=== PATIENT | male | born 1940 ===

== ENCOUNTER 2019-02-19 18:13 | Observation (INO) | payer OTHER, BC ==
[2019-02-19 18:23] VITALS: BMI 25.8
--- NOTE | 2019-02-19 18:24 | PDOC ---
Rapid Medical Evaluation Medical Evaluation: I have performed a brief in-person evaluation of this patient. The patient presents with a chief complaint of: Hx of asthma, HTN, HLD; Sent by PCP for possible PNA; c/o worsening SOB over the past month; +productive cough; denies fever, cp Pertinent physical exam findings: Appears slightly tachypneic, +expiratory wheeze, no pedal edema I have ordered the following: Labs, EKG, CXR The patient will proceed to the ED for further evaluation. 02/19/19 18:19
[2019-02-19] MEDS ORDERED: ALBUTEROL SO4 2.5/IPRATROPIUM 0.5 INH SOL 3 ML VIAL.NEB. NEB ONE (18:47)
[2019-02-19 18:57] LABS: BASO % 0.7 % (0-2.0); EOS % 0.6 % (0-4.5); HEMATOCRIT 48.6 % (35.4-49); HEMOGLOBIN 15.8 GM/dL (11.7-16.9); LYMPH % 17.5 % (8-40); MCH 28.8 pg (25.7-33.7); MCHC 32.5 g/dl (32.0-35.9); MEAN CELL VOLUME 88.7 fl (80-96); MEAN PLT VOLUME 9.1 fl (7.5-11.1); MONO % 17.8 % (3.8-10.2); NEUT % 63.4 % (42.8-82.8); PLATELET COUNT 140 K/MM3 (134-434); RBC 5.48 M/mm3 (4.00-5.60); RDW 14.2 % (11.9-15.9)
[2019-02-19 18:59] LABS: VENOUS PH 7.36 (7.31-7.41)
[2019-02-19] MEDS: ALBUTEROL SO4 2.5/IPRATROPIUM 0.5 INH SOL 3 ML VIAL.NEB. NEB SCH ×3 (19:02→20:51)
[2019-02-19 19:11] LABS: VENOUS PO2 17.6 mmHg (30-40)
[2019-02-19 19:34] LABS: ALBUMIN 3.7 g/dl (3.4-5.0); ALK PHOS 83 U/L (45-117); ANION GAP 4 MMOL/L (8-16); BILIRUBIN,TOTAL 0.8 mg/dL (0.2-1); BLOOD UREA NITROGEN 25 mg/dL (7-18); CALCIUM 8.7 mg/dL (8.5-10.1); CHLORIDE 103 mmol/L (98-107); CO2 31 mmol/L (21-32); CREATININE 1.7 mg/dL (0.55-1.3); GLUCOSE,RANDOM 79 mg/dL (74-106); N-TERMINAL BNP 146.9 pg/ml (5-450); POTASSIUM 4.8 mmol/L (3.5-5.1); SGOT/AST 22 U/L (15-37); SGPT/ALT 26 U/L (13-61); SODIUM 138 mmol/L (136-145); TOT PROT 6.6 g/dl (6.4-8.2)
[2019-02-19] MEDS ORDERED: FOLIC ACID INJECTION - 1 MG, THIAMINE HCL 100 MG, MULTIVIT INJECTION ADULT 10 ML in SOD... IVPB ONE (19:38)
--- NOTE | 2019-02-19 19:49 | PDOC ---
History of Present Illness - General Chief Complaint: Shortness of Breath Stated Complaint: shortness of breath Time Seen by Provider: 02/19/19 18:19 - History of Present Illness Initial Comments: Kedar Baldwin is a 78yo man with a PMH of CAD s/p 2x stents, HTN, HLD, childhood asthma (no longer on treatment) who was sent to the ED by Dr Deondre Goel for evaluation for one month of cough, now worsening over the past week. He reports that he had a cold with nasal congestion about a month ago. The cold "settled into his lungs" which he states is the typical pattern when he has a respiratory infection. He saw Dr Goel about 2 weeks ago due to continued cough and was given an injection and prescription to take at home, which he believes were steroids and antibiotics. However over the past 2 weeks, he has had a worsening cough. He states that he has coughing episodes in which he coughs to the point that he has difficulty breathing. The cough is worse at night. This past week, he has also felt increasingly fatigued and weak. He was directed to the ED by Dr Goel but accidentally went to [facility] instead of [facility]. He had a chest xray completed, and he does not believe it showed any pneumonia. Today he felt so weak that he had difficulty ambulating. He also reports anorexia during his illness, and he has had about a 10lb weight loss over the past month. He denies any fever, chills, continued nasal/sinus congestion, nausea/vomiting, change in bowel habits, or known sick contacts. He does report a recent cruise to the [facility] within the past 2 weeks. Past History - Past Medical History Allergies/Adverse Reactions: Allergies Allergy/AdvReac Type Severity Reaction Status Date / Time No Known Allergies Allergy Verified 02/19/19 18:23 Home Medications: Ambulatory Orders Aspirin 81 mg PO DAILY 02/19/19 Atorvastatin Calcium 20 mg PO DAILY 02/19/19 Hydrocodone Bit/Homatrop Me-Br [Hydrocodone-Homatropine Syrup] 5 ml PO DAILY 07/31 Losartan Potassium 50 mg PO DAILY 02/19/19 Metoprolol Tartrate 25 mg PO DAILY 02/19/19 Cardiac Disorders: Yes (2stents) COPD: No HTN: Yes Hypercholesterolemia: Yes - Surgical History Cardiac Surgery: Yes (stents) - Suicide/Smoking/Psychosocial Hx Smoking History: Never smoked Information on smoking cessation initiated: No Hx Alcohol Use: No Drug/Substance Use Hx: No Review of Systems - Review of Systems Comments:: General: No fevers, no chills, +anorexia, +fatigue/weakness HEENT: No changes in vision, no changes in hearing, +recent URI, no sore throat CV: No chest pain, no palpitations, no LE edema Pulm: +cough, no wheezing GI: No nausea or vomiting, no change in bowel habits, no melena : No frequency, no urgency, no dysuria Musc: No back pain, no joint swelling, no recent injury Skin: No rash, no lesions, no erythema Endo: No excessive thirst, no heat/cold intolerance Heme: No unusual bruising or bleeding, no swollen glands Neuro: No syncope, no numbness/tingling, no focal weakness Vasc: No claudication Psych: No recent change in mood, no SI or HI *Physical Exam - Vital Signs Last Vital Signs Temp Pulse Resp BP Pulse Ox 97.4 F L 95 H 19 127/61 97 02/19/19 18:19 02/19/19 18:19 02/19/19 18:19 02/19/19 18:19 02/19/19 18:19 - Physical Exam Comments: General: Comfortable, no acute distress HEENT: PERRL, EOMI, MMM, voice normal Cards: RRR, no murmur appreciated Pulm: Loud upper respiratory sounds, productive cough, good breath sounds b/l w/ o crackles or wheezing Abd: Soft, nontender, nondistended Ext: Atraumatic. No LE edema. ROM intact. Strength 5/5 and equal bilaterally Vasc: Extremities WWP. Skin: Normal color, no rashes or lesions Neuro: A&Ox3, CN grossly intact, normal speech, motor/sensory grossly intact and symmetric Psych: Mood appropriate to situation ED Treatment Course - LABORATORY CBC & Chemistry Diagram: 02/19/19 18:44 02/19/19 18:44 - ADDITIONAL ORDERS Additional order review: Laboratory Results 02/19/19 02/19/19 18:48 18:44 VBG pH 7.36 POC VBG pCO2 54.0 H POC VBG pO2 17.6 L VBG HCO3 29.9 H VBG O2 Sat (Neal) 21.5 L VBG Base Excess 3.4 H Sodium 138 Potassium 4.8 Chloride 103 Carbon Dioxide 31 Anion Gap 4 L BUN 25 H Creatinine 1.7 H Est GFR (CKD-EPI)AfAm 43.79 Est GFR (CKD-EPI)NonAf 37.79 Random Glucose 79 Calcium 8.7 Total Bilirubin 0.8 AST 22 ALT 26 Alkaline Phosphatase 83 Creatine Kinase 103 Troponin I < 0.02 B-Natriuretic Peptide 146.9 Total Protein 6.6 Albumin 3.7 02/19/19 18:44 RBC 5.48 MCV 88.7 MCHC 32.5 RDW 14.2 MPV 9.1 Neutrophils % 63.4 Lymphocytes % 17.5 Monocytes % 17.8 H Eosinophils % 0.6 Basophils % 0.7 - Medications Given in the ED: ED Medications Discontinued Medications Generic Name Dose Route Start Last Admin Trade Name Freq PRN Reason Stop Dose Admin Albuterol/Ipratropium 1 amp 02/19/19 18:30 02/19/19 19:40 Duoneb - NEB 02/19/19 19:01 1 amp Q15M [facility] Administration Medical Decision Making - Medical Decision Making 02/19/19 19:49 Kedar Baldwin is a 78yo man with a PMH of CAD s/p 2x stents, HTN, HLD, childhood asthma (no longer on treatment) who was sent to the ED by Dr Deondre Goel for evaluation for one month of cough that has worsened over the past week. He reports associated anorexia, weight loss, and increasing fatigue/ weakness in addition to continued productive cough. - Given worsening symptoms, suspect pneumonia following viral URI. Consider legionella given recent cruise - CXR completed at [facility] that reportedly did not show pneumonia. Will obtain CT chest to better evaluate for pneumonia. As he also reports cough worsening at night, will CT sinuses to evaluate for sinusitis. - CBC, CMP, trop, BNP, EKG, CXR ordered in [facility]. Chemistry completed, shows elevated Cr to 1.7. Pt noted to be tachycardic in low 100's on arrival, most likely represents dehydration. 1L IVF ordered by Dr Fairchild for hydration. CXR canceled in favor of CT chest. 02/19/19 21:30 - Labs reviewed. VBG with low O2 at 17. ABG ordered, declined by pt. - CT sinuses w/ acute on chronic sinusitis. CT chest w/ mild emphysematous changes. - Discussed w/ Mr Baldwin. Recommending admission given duration of illness, report of weakness that prevents ambulating, hypoxia, NATIVIDAD. He agrees with this plan. - Call placed to Dr Deondre Goel regarding admission 02/19/19 21:37 - Spoke to Dr Goel. Will admit to obs. Requesting Dr Bhagat for pulmonology consult. Azithromycin, singulair for symptoms. Discussed with Dr Fairchild. Jennyfer Stanton PGY1 *DC/Admit/Observation/Transfer Diagnosis at time of Disposition: NATIVIDAD (acute kidney injury), Sinusitis, Hypoxia, COPD (chronic obstructive pulmonary disease) - Discharge Dispostion Decision to Admit order: Yes - Referrals Referrals: Deondre Goel MD [Primary Care Provider] - - Patient Instructions - Post Discharge Activity
[2019-02-19] MEDS ORDERED: AZITHROMYCIN IVPB 500 MG in DEXTROSE 5%-WATER - 250 ML IVPB ONE (21:52)
[2019-02-19] MEDS ORDERED: AZITHROMYCIN IVPB 500 MG/250 ML BAG IVPB ONE (21:58)
[2019-02-19] MEDS ORDERED: MONTELUKAST NA 10 MG TABLET ONE (22:07)
[2019-02-19] MEDS: MONTELUKAST NA 10 MG TABLET PO SCH (22:13)
--- NOTE | 2019-02-20 00:45 | PDOC ---
Documentation entered by Serafin Quezada SCRIBE, acting as scribe for Alayna Fairchild MD. Alayna Fairchild MD: This documentation has been prepared by the pauloibe, Serafin Quezada SCRIBE, under my direction and personally reviewed by me in its entirety. I confirm that the documentation accurately reflects all work, treatment, procedures, and medical decision making performed by me. Attending Attestation - Resident Resident Name: Jennyfer Stanton - ED Attending Attestation I have performed the following: I have examined & evaluated the patient, The case was reviewed & discussed with the resident, I agree w/resident's findings & plan - HPI HPI: 02/19/19 20:37 The patient is a 78 year old male with a significant past medical history of hypertension, hyperlipidemia, CAD , and childhood asthma(last attack at 24 years old) who presents to the emergency department with shortness of breath for 1 month. He states that his shortness of breath has worsened with the past week . The patient reports an associated worsening cough and increased weakness with his shortness of breath. He states that he has been experiencing coughing spells that make it difficult for him to breathe. It is noted that the patient saw his Dr for this similar complaint 2 weeks ago by which he was given a steroid shot and medication for his cough. The patient states that his PCP subsequently sent him to the ED to get x-ray imaging of his chest. The patient has reported some associated chills, runny nose, decreased appetite, and weight loss with his symptoms. He denies any fever, nausea, vomiting, diarrhea, constipation or urinary symptoms. He denies any known sick contact, chest pain, orthopnea, or leg swelling. The patient denies any other complaints. It is noted that the patient went on a cruise for 1 week (traveled to [place], [facility], and [facility]) and returned 6 days ago. - Physicial Exam PE: 02/19/19 20:37 GENERAL: Awake, alert, and fully oriented, in no acute distress HEAD: No signs of trauma EYES: PERRLA, EOMI, sclera anicteric, conjunctiva clear ENT: (+)junky cough with deep breath. Auricles normal inspection, hearing grossly normal, nares patent, oropharynx clear without exudates. Moist mucosa NECK: Normal ROM, supple, no lymphadenopathy, JVD, or masses LUNGS: (+)coarse breath sounds bilaterally throughout both lung godoy, wheezing bilaterally, No wheezes, and no crackles HEART: Regular rate and rhythm, normal S1 and S2, no murmurs, rubs or gallops ABDOMEN: Soft, nontender, normoactive bowel sounds. No guarding, no rebound. No masses EXTREMITIES: Normal range of motion, no edema. No clubbing or cyanosis. No cords, erythema, or tenderness NEUROLOGICAL: Cranial nerves II through XII grossly intact. Normal speech, normal gait SKIN: Warm, Dry, normal turgor, no rashes or lesions noted. - Medical Decision Making 02/19/19 20:27 Coarse BS bilat; pt has low pulsox on RA 95% Pt reports a 10lb weight loss in the last month Pt has remote hx of asthma; last attack when he was 24yo. Pt was a smoker he quit in 1968. Pt was given presdnisone pack 2 weeks ago prior to his [employer] cruise. He took 02/19/19 21:08 Call placed to Deondre Murillo and case discussed @8:05pm EXAM: RESULT: CT/SINUS CT W/O CONTRAST Impression: Status post bilateral medial maxillary antrostomies. Chronic sinusitis, as described above with small air-fluid levels in the maxillary antra suggestive of superimposed acute sinusitis. Reported By: Rakesh Lowe MD 02/19/19 21:11 Pt has an acute on chronic sinusitis which is likely causing a postnasal drip. 02/19/19 21:14 Pt has bilateral lower lung field haziness; likely small pneumonia; awaiting CT reading. Pt will likely be admitted. Dr. Goel is requesting Dr. Bhagat to see patient for pulm consult. 02/19/19 21:20 02/19/19 21:30 Pt will be admitted for 10lb weight loss; symptomatic hypoxia; chronic cough; centrilobular emphysema, and renal insufficiency.
[2019-02-20] MEDS: methylPREDNISolone NA SUCC 40 MG/1 ML VIAL IVPUSH SCH ×4 (02:27→21:03)
[2019-02-20] MEDS: IPRATROPIUM BR 0.02% 0.5 MG/2.5 ML VIAL.NEB. NEB SCH ×3 (05:21→12:28)
[2019-02-20 07:53] LABS: BASO % 0.4 % (0-2.0); EOS % 0.1 % (0-4.5); HEMATOCRIT 42.4 % (35.4-49); HEMOGLOBIN 14.1 GM/dL (11.7-16.9); LYMPH % 4.9 % (8-40); MCH 29.4 pg (25.7-33.7); MCHC 33.2 g/dl (32.0-35.9); MEAN CELL VOLUME 88.4 fl (80-96); MEAN PLT VOLUME 9.3 fl (7.5-11.1); MONO % 5.1 % (3.8-10.2); NEUT % 89.5 % (42.8-82.8); PLATELET COUNT 108 K/MM3 (134-434); RBC 4.79 M/mm3 (4.00-5.60); RDW 14.1 % (11.9-15.9); WHITE BLOOD COUNT 7.3 K/mm3 (4.0-10.0)
[2019-02-20 08:22] LABS: ALBUMIN 3.1 g/dl (3.4-5.0); POTASSIUM 4.1 mmol/L (3.5-5.1); TOT PROT 5.6 g/dl (6.4-8.2)
[2019-02-20] MEDS ORDERED: ALBUTEROL SO4 8 GM HFA INHALER IH PRN (08:27)
[2019-02-20] MEDS ORDERED: ACETAMINOPHEN 325 MG TABLET (FP) PO PRN (08:30)
[2019-02-20] MEDS ORDERED: PT OWN MED DRAWER 7, Y5N ONE (09:23)
[2019-02-20] MEDS: ASPIRIN 81 MG CHEWABLE TABLETS PO SCH (09:24)
[2019-02-20] MEDS: LOSARTAN POTASSIUM 50 MG TABLET (FP) PO SCH (09:24)
[2019-02-20] MEDS: CLOPIDOGREL BISULFATE 75 MG TABLET (FP) PO SCH (09:24)
[2019-02-20] MEDS: VERAPAMIL HCL 120 MG E.R. TABLET PO SCH (09:25)
[2019-02-20] MEDS: AZITHROMYCIN IVPB 250 MG in DEXTROSE 5%-WATER - 250 ML IVPB SCH (09:30)
[2019-02-20] MEDS: BUDESONIDE/FORMETEROL FUMARATE 80/4.5 mcg INHALER IH SCH ×2 (09:30→21:04)
--- NOTE | 2019-02-20 09:34 | HP ---
Admitting History and Physical - Admission Chief Complaint: c/o cough weezing very weak unable to walk sob at rest x 1wk History Source: Patient Limitations to Obtaining History: Other (weak!!!) - Past Medical History Cardiovascular: Yes: Other (s/p 2 stents angina angioplasty opening of restenosed stent ? lad) Pulmonary: Yes: COPD - Past Surgical History Past Surgical History: Yes: Stent, Tonsillectomy - Smoking History Smoking history: Former smoker - Alcohol/Substance Use Hx Alcohol Use: No History of Substance Use: reports: None - Social History Usual Living Arrangement: Yes: Alone ADL: Independent History of Recent Travel: Yes (? ) Home Medications - Allergies Allergies/Adverse Reactions: Allergies Allergy/AdvReac Type Severity Reaction Status Date / Time No Known Allergies Allergy Verified 02/19/19 18:23 - Home Medications Home Medications: Ambulatory Orders Aspirin 81 mg PO DAILY 02/19/19 Atorvastatin Calcium 20 mg PO DAILY 02/19/19 Hydrocodone Bit/Homatrop Me-Br [Hydrocodone-Homatropine Syrup] 5 ml PO DAILY 07/31 Losartan Potassium 50 mg PO DAILY 02/19/19 Metoprolol Tartrate 25 mg PO DAILY 02/19/19 Clopidogrel Bisulfate [Plavix -] 75 mg PO DAILY 02/20/19 Family Disease History - Family Disease History Family History: Unremarkable Review of Systems - Review of Systems Respiratory: reports: SOB on Exertion, Wheezing Physical Examination Vital Signs: Vital Signs Temperature 98.4 F 02/20/19 07:05 Pulse Rate 75 02/20/19 07:05 Respiratory Rate 21 H 02/20/19 07:05 Blood Pressure 112/61 02/20/19 07:05 O2 Sat by Pulse Oximetry (%) 93 L 02/20/19 00:00 Constitutional: Yes: Well Nourished Eyes: Yes: WNL, Other HENT: Yes: WNL Neck: Yes: WNL Cardiovascular: Yes: WNL Respiratory: Yes: Cough, Diminished, Wheezes Gastrointestinal: Yes: WNL ...Rectal Exam: Yes: Deferred Renal/: Yes: WNL Breast(s): Yes: WNL Musculoskeletal: Yes: WNL Extremities: Yes: WNL Edema: No Peripheral Pulses WNL: Yes Integumentary: Yes: WNL Neurological: Yes: WNL ...Motor Strength: WNL Psychiatric: Yes: WNL Labs: CBC, BMP 02/20/19 05:15 02/20/19 05:15 Assessment/Plan neb tx pulm consult 0 2 steroids iv inhalers chest p/t admited observ? for now
[2019-02-20] MEDS ORDERED: PNEUMOC 13-VAL CONJ-DIP CRM/PF 0.5 ML DISP.SYRIN IM ONE (10:00)
--- NOTE | 2019-02-20 11:44 | EKG ---
Test Reason : Blood Pressure : / mmHG Vent. Rate : 071 BPM Atrial Rate : 071 BPM P-R Int : 226 ms QRS Dur : 082 ms QT Int : 384 ms P-R-T Axes : 004 070 051 degrees QTc Int : 417 ms SINUS RHYTHM WITH SINUS ARRHYTHMIA WITH 1ST DEGREE A-V BLOCK SEPTAL INFARCT , AGE UNDETERMINED ABNORMAL ECG NO PREVIOUS ECGS AVAILABLE Confirmed by KASHIF BAE MD ([id number]) on 02/20/2019 11:44:01 AM Referred By: Confirmed By:KASHIF BAE MD
--- NOTE | 2019-02-20 12:09 | CON.PULM ---
Consult Consult Specialty:: PULMONARY Referred by:: Dr Goel Reason for Consultation:: shortness of breath - History of Present Illness Chief Complaint: weakness History of Present Illness: 78yo male with h/o HTN, hyperlipidemia, CAD, childhood asthma who was sent from PMD office for worsening shortness of breath, cough and generalized weakness over the past month. No chest pain or palpitations. No fevers, but with subjective chills. +nonproductive cough and wheezing. Reports a 10lb weight loss from a month ago. 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 CT chest done which did not show any infiltrates but with mild atelectatic and bronchiectasis. - History Source History Provided By: Patient, Medical Record Limitations to Obtaining History: No Limitations - Past Medical History Cardio/Vascular: Yes: Other (s/p 2 stents angina angioplasty opening of restenosed stent ? lad) Pulmonary: Yes: COPD - Past Surgical History Past Surgical History: Yes: Stent, Tonsillectomy - Alcohol/Substance Use Hx Alcohol Use: No History of Substance Use: reports: None - Smoking History Smoking history: Former smoker - Social History ADL: Independent History of Recent Travel: Yes (? ) Home Medications - Allergies Allergies/Adverse Reactions: Allergies Allergy/AdvReac Type Severity Reaction Status Date / Time No Known Allergies Allergy Verified 02/19/19 18:23 - Home Medications Home Medications: Ambulatory Orders Aspirin 81 mg PO DAILY 02/19/19 Atorvastatin Calcium 20 mg PO DAILY 02/19/19 Hydrocodone Bit/Homatrop Me-Br [Hydrocodone-Homatropine Syrup] 5 ml PO DAILY 07/31 Losartan Potassium 50 mg PO DAILY 02/19/19 Metoprolol Tartrate 25 mg PO DAILY 02/19/19 Clopidogrel Bisulfate [Plavix -] 75 mg PO DAILY 02/20/19 Review of Systems - Review of Systems Constitutional: reports: Chills, Weakness. denies: Fever Eyes: denies: Recent Change in Vision HENT: denies: Nasal Congestion, Throat Pain Neck: denies: Stiffness, Tenderness Cardiovascular: reports: Shortness of Breath. denies: Chest Pain, Edema, Palpitations Respiratory: reports: Cough, Exercise Intolerance, SOB on Exertion, Wheezing. denies: Hemoptysis Gastrointestinal: denies: Abdominal Pain, Nausea, Vomiting Genitourinary: denies: Dysuria, Hematuria Neurological: denies: Dizziness, Headache Endocrine: reports: Unexplained Weight Loss Physical Exam Vital Sings: Vital Signs Temperature 98.5 F 02/20/19 10:00 Pulse Rate 85 02/20/19 10:00 Respiratory Rate 20 02/20/19 10:00 Blood Pressure 116/64 02/20/19 10:00 O2 Sat by Pulse Oximetry (%) 94 L 02/20/19 09:34 Constitutional: Yes: Calm Eyes: Yes: Conjunctiva Clear, EOM Intact HENT: Yes: Atraumatic, Normocephalic Neck: Yes: Supple, Trachea Midline Cardiovascular: Yes: Regular Rate and Rhythm Respiratory: Yes: Rhonchi, Wheezes ...Clubbing: No Gastrointestinal: Yes: Normal Bowel Sounds, Soft. No: Tenderness Edema: No Neurological: Yes: Alert, Oriented Labs: CBC, BMP 02/20/19 05:15 02/20/19 05:15 Imaging - Results Chest X-ray: Report Reviewed, Image Reviewed Cat Scan: Report Reviewed, Image Reviewed (mild atelectais, bronchiectasis) Problem List - Problems (1) COPD with acute exacerbation Code(s): J44.1 - CHRONIC OBSTRUCTIVE PULMONARY DISEASE W (ACUTE) EXACERBATION (2) Bronchiectasis Code(s): J47.9 - BRONCHIECTASIS, UNCOMPLICATED Assessment/Plan Acute COPD Exacerbation Bronchiectasis CAD HTN Hyperlipidemia - continue IV medrol at current dose - inhaled bronchodilators standing and PRN - O2 to keep Spo2 >90% - agree with azithromycin - will need outpt f/u and PFTs - DVT prophylaxis Thank you for this consult Ronnie Walters MD
[2019-02-20] MEDS: ALBUTEROL SO4 2.5/IPRATROPIUM 0.5 INH SOL 3 ML VIAL.NEB. NEB SCH ×2 (16:13→20:09)
[2019-02-20] MEDS: MONTELUKAST NA 10 MG TABLET PO SCH (21:03)
[2019-02-21] MEDS: methylPREDNISolone NA SUCC 40 MG/1 ML VIAL IVPUSH SCH ×2 (03:58→08:42)
[2019-02-21] MEDS: ALBUTEROL SO4 2.5/IPRATROPIUM 0.5 INH SOL 3 ML VIAL.NEB. NEB SCH ×2 (07:59→11:21)
[2019-02-21] MEDS ORDERED: PT OWN MED DRAWER 7, Y5N ONE (09:42)
[2019-02-21] MEDS: ASPIRIN 81 MG CHEWABLE TABLETS PO SCH (09:51)
[2019-02-21] MEDS: CLOPIDOGREL BISULFATE 75 MG TABLET (FP) PO SCH (09:51)
[2019-02-21] MEDS: LOSARTAN POTASSIUM 50 MG TABLET (FP) PO SCH (09:51)
[2019-02-21] MEDS: VERAPAMIL HCL 120 MG E.R. TABLET PO SCH (09:59)
[2019-02-21] MEDS ORDERED: FLUTICASONE PROP 0.05% 16 GM NASAL SPRAY NS SCH (10:00)
[2019-02-21] MEDS: BUDESONIDE/FORMETEROL FUMARATE 80/4.5 mcg INHALER IH SCH (10:00)
[2019-02-21 10:38] VITALS: BP 116/65; PULSE 78; TEMP 98.1
[2019-02-21] MEDS: AZITHROMYCIN IVPB 250 MG in DEXTROSE 5%-WATER - 250 ML IVPB SCH (11:00)
--- NOTE | 2019-02-21 11:27 | PN ---
Progress Note (short form) - Note Progress Note: PULMONARY Feeling much improved. Less short of breath with cough improving. Wants to go home. Vital Signs Period Temp Pulse Resp BP Sys/Grady Pulse Ox Last 24 Hr 97.9 F-98.1 F 72-78 18-20 116-122/60-66 96-96 Gen: NAD at rest Heart: RRR Lung: decreased breath sounds at the bases, no wheezes Abd: soft, nontender Ext: no edema CBC, BMP 02/20/19 05:15 02/20/19 05:15 Active Medications Acetaminophen (Tylenol -) 650 mg PO Q4H PRN PRN Reason: TEMPERATURE >100.4 Albuterol Sulfate (Ventolin Hfa Inhaler -) 2 puff IH QID PRN PRN Reason: SHORTNESS OF BREATH Albuterol/Ipratropium (Duoneb -) 1 amp NEB RQID [facility] Last Admin: 02/21/19 11:21 Dose: Not Given Aspirin (Asa -) 81 mg PO DAILY [facility] Last Admin: 02/21/19 09:51 Dose: 81 mg Budesonide/Formoterol Fumarate (Symbicort 80/4.5mcg -) 2 puff IH BID [facility] Last Admin: 02/21/19 10:00 Dose: 2 puff Clopidogrel Bisulfate (Plavix -) 75 mg PO DAILY [facility] Last Admin: 02/21/19 09:51 Dose: 75 mg Fluticasone Propionate (Flonase -) 2 spray NS DAILY [facility] Last Admin: 02/21/19 10:00 Dose: 2 spray Azithromycin 250 mg/ Dextrose 250 mls @ 250 mls/hr IVPB DAILY [facility] Stop: 02/23/19 10:59 Last Admin: 02/21/19 11:00 Dose: 250 mls/hr Losartan Potassium (Cozaar -) 50 mg PO DAILY [facility] Last Admin: 02/21/19 09:51 Dose: 50 mg Methylprednisolone Sodium Succinate (Solu-Medrol -) 40 mg IVPUSH Q8H-IV VERONICA Montelukast Sodium (Singulair -) 10 mg PO HS [facility] Last Admin: 02/20/19 21:03 Dose: 10 mg Verapamil HCl (Calan Sr -) 120 mg PO DAILY [facility] Last Admin: 02/21/19 09:59 Dose: 120 mg A/P Acute COPD Exacerbation Bronchiectasis CAD HTN Hyperlipidemia - can change steroids to PO prednisone 40mg daily and taper as outpt - inhaled bronchodilators standing and PRN - O2 to keep Spo2 >90% - complete azithromycin PO - will need outpt f/u and PFTs - DVT prophylaxis - can be discharged home from pulmonary standpoint with outpt f/u Problem List - Problems (1) COPD with acute exacerbation Code(s): J44.1 - CHRONIC OBSTRUCTIVE PULMONARY DISEASE W (ACUTE) EXACERBATION (2) Bronchiectasis Code(s): J47.9 - BRONCHIECTASIS, UNCOMPLICATED
--- NOTE | 2019-02-21 12:00 | DS ---
Physical Examination Vital Signs: Vital Signs Temperature 98.1 F 02/21/19 10:00 Pulse Rate 78 02/21/19 10:00 Respiratory Rate 18 02/21/19 10:00 Blood Pressure 116/65 02/21/19 10:00 O2 Sat by Pulse Oximetry (%) 96 02/21/19 01:00 Constitutional: Yes: Well Nourished Eyes: Yes: WNL HENT: Yes: WNL Neck: Yes: WNL Cardiovascular: Yes: WNL Respiratory: Yes: Other (less weezing less sob) Gastrointestinal: Yes: WNL ...Rectal Exam: Yes: WNL Renal/: Yes: WNL Breast(s): Yes: WNL Musculoskeletal: Yes: WNL Extremities: Yes: WNL Edema: No Peripheral Pulses WNL: Yes Integumentary: Yes: WNL Neurological: Yes: WNL ...Motor Strength: WNL Psychiatric: Yes: WNL Labs: CBC, BMP 02/20/19 05:15 02/20/19 05:15 Discharge Summary Reason For Visit: ACUTE KIDNEY INJURY SINUSITIS HYPOXIA Current Active Problems NATIVIDAD (acute kidney injury) (Acute) Bronchiectasis (Acute) COPD (chronic obstructive pulmonary disease) (Acute) COPD with acute exacerbation (Acute) Hypoxia (Acute) Sinusitis (Acute) Condition: Fair - Instructions Diet, Activity, Other Instructions: platlets iow on steroids will f/u out pt' pt wants to go and cleared buy pulm cont all meds at home gave zithromax po gave singulair po gave tapering steroids doses appt w me 300 friday Disposition: HOME - Home Medications Comprehensive Discharge Medication List: Ambulatory Orders Aspirin 81 mg PO DAILY 02/19/19 Atorvastatin Calcium 20 mg PO DAILY 02/19/19 Hydrocodone Bit/Homatrop Me-Br [Hydrocodone-Homatropine Syrup] 5 ml PO DAILY 07/31 Losartan Potassium 50 mg PO DAILY 02/19/19 Metoprolol Tartrate 25 mg PO DAILY 02/19/19 Clopidogrel Bisulfate [Plavix -] 75 mg PO DAILY 02/20/19
[2019-02-21] MEDS ORDERED: methylPREDNISolone NA SUCC 40 MG/1 ML VIAL IVPUSH SCH (18:00)
== END 2019-02-21 18:29 | disposition home or self-care (01) ==
LOC: EDBD 18:13 → JER 18:13 → JERBED 21:36 → UNDOADMOB 21:36 → INTOOBSV 21:36 → J6S 23:50 → JERBED 23:50 → J6S 02-20 09:34 → JERBED 02-20 09:34
PROVIDERS: ADMIT Family Medicine; ATTEND Family Medicine
PROC: 3E0333Z Introduction of Anti-inflammatory into Peripheral Vein, Percutaneous Approach (ICD-10-PCS; principal; 2019-02-20)
PROC: 3E03329 Introduction of Other Anti-infective into Peripheral Vein, Percutaneous Approach (ICD-10-PCS; 2019-02-20)
PROC: 3E0337Z Introduction of Electrolytic and Water Balance Substance into Peripheral Vein, Percutaneous Approach (ICD-10-PCS; 2019-02-20)
PROC: 3E0F7GC Introduction of Other Therapeutic Substance into Respiratory Tract, Via Natural or Artificial Opening (ICD-10-PCS; 2019-02-20)
DX: N17.9 Acute kidney failure, unspecified (principal); J44.1 Chronic obstructive pulmonary disease with (acute) exacerbation; J32.9 Chronic sinusitis, unspecified; I10 Essential (primary) hypertension; E78.5 Hyperlipidemia, unspecified; I25.10 Atherosclerotic heart disease of native coronary artery without angina pectoris; R09.02 Hypoxemia; Z79.82 Long term (current) use of aspirin; Z95.5 Presence of coronary angioplasty implant and graft
CPT/HCPCS: 36415; 70486-TC; 71250-TC; 80053; 82550; 82803; 83880; 84484; 85025; 87040; 93005; 93010; 94640; 96365; 96366; 96367; 96375; 99284-25; G0378; J7030